=== PATIENT | female | born 1965 | race African-American/Black ===

== ENCOUNTER 2017-07-27 10:34 | Emergency (ER) | payer OTHER ==
[2017-07-27 10:42] VITALS: TEMP 98.8; BMI 28.0
--- NOTE | 2017-07-27 10:59 | PDOC ---
History of Present Illness - General History Source: Patient, Care Provider Exam Limitations: No Limitations - History of Present Illness Timing/Duration: 4-6 hours Severity: moderate Modifying Factors: improves with: movement (Increases pain), other (Deep inhalation; increases pain. ) <Jasiel Hill - Last Filed: 07/27/17 14:13> - General History Source: Patient, Care Provider (Patient walked in complaining of right sided chest pain, same time received call from her PCP about how this lady had a long flight of 14 hours from [facility] to [facility] aprox a week ago. Concern expressed about potential PE ) Exam Limitations: No Limitations - History of Present Illness Timing/Duration: 24 hours Severity: moderate Modifying Factors: improves with: movement Associated Symptoms: reports: chest pain. denies: fever/chills <Sara Dinh - Last Filed: 07/28/17 19:36> - General Chief Complaint: Chest Pain Stated Complaint: pleuritic chest pain,sent by PMD Time Seen by Provider: 07/27/17 10:54 Past History <Jasiel Hill - Last Filed: 07/27/17 14:13> - Travel Traveled outside of the country in the last 30 days: Yes Close contact w/someone who was outside of country & ill: No - Past Medical History COPD: No HTN: Yes Other medical history: rigth leg mild weakness due to iron injection years ago to rt buttock. - Suicide/Smoking/Psychosocial Hx Smoking History: Never smoked Hx Alcohol Use: No Drug/Substance Use Hx: No Substance Use Type: None <Sara Dinh - Last Filed: 07/28/17 19:36> - Past Medical History Allergies/Adverse Reactions: Allergies Allergy/AdvReac Type Severity Reaction Status Date / Time No Known Allergies Allergy Verified 07/27/17 10:35 Home Medications: Ambulatory Orders Unobtainable [Unobtainable] 07/27/17 Review of Systems - Review of Systems Cardiac (ROS): Yes: Chest Pain (Right sided chest pain. ) All Other Systems: Reviewed and Negative <Jasiel Hill - Last Filed: 07/27/17 14:13> - Review of Systems Able to Perform ROS?: Yes Is the patient limited [place] proficient: Yes Constitutional: No: Symptoms Reported, See HPI, Chills, Diaphoresis, Fever, Loss of Appetite, Malaise, Night Sweats, Weakness, Weight Stable, Unintentional Wgt. Loss, Unexplained wgt Loss, Other HEENTM: No: Symptoms Reported, See HPI, Eye Pain, Blurred Vision, Tearing, Recent change in vision, Double Vision, Cataracts, Ear Pain, Ocular Prothesis, Ear Discharge, Nose Pain, Nose Congestion, Tinnitus, Nose Bleeding, Hearing Loss , Throat Pain, Throat Swelling, Mouth Pain, Dental Problems, Difficulty Swallowing, Mouth Swelling, Other Cardiac (ROS): No: Chest Pain (Right sided chest pain increased by deep inspiration and certain turning of waist motions ) ABD/GI: No: Symptoms Reported, See HPI, Abdominal Distended, Abd. Pain w/ defecation, Blood Streaked Bowels, Constipated, Diarrhea, Difficulty Swallowing , Nausea, Poor Appetite, Poor Fluid Intake, Rectal Bleeding, Vomiting, Indigestion, Abdominal cramping, Tarry Stools, Other Musculoskeletal: Yes: See HPI Integumentary: No: Symptoms Reported, See HPI, Bruising, Change in Color, Change in Hair/Nails, Dryness, Erythema, Flushing, Lesions, Lumps, Pallor, Pruritus, Rash, Sweating, Other Neurological: No: Symptoms reported, See HPI, Headache, Numbness, Paresthesia, Pre-Existing Deficit, Seizure, Tingling, Tremors, Weakness, Unsteady Gait, Ataxia, Dizziness, Other Psychiatric: No: Anxiety, Depression, Frequent Crying, Stressors, Sleep Pattern Change, Emotional Problems, Mood Swings, Change in Appetite, Other Endocrine: No: Symptoms Reported, See HPI, Excessive Sweating, Flushing, Intolerance to Cold, Intolerance to Heat, Increased Hunger, Increased Thirst, Increased Urine, Unexplained Weight Gain, Unexplained Weight Loss, Change in Weight, Other All Other Systems: Reviewed and Negative <Sara Dinh - Last Filed: 07/28/17 19:36> *Physical Exam - Vital Signs Last Vital Signs Temp Pulse Resp BP Pulse Ox 98.8 F 88 18 159/94 95 07/27/17 10:35 07/27/17 10:35 07/27/17 10:35 07/27/17 10:35 07/27/17 10:35 - Physical Exam Respiratory/Chest: positive: Chest Tender (Pain to right sided chest, with deep palpation. ) <Jasiel Hill - Last Filed: 07/27/17 14:13> - Vital Signs Last Vital Signs Temp Pulse Resp BP Pulse Ox 98.8 F 88 18 159/94 95 07/27/17 10:35 07/27/17 10:35 07/27/17 10:35 07/27/17 10:35 07/27/17 10:35 - Physical Exam General Appearance: Yes: Nourished, Appropriately Dressed, Mild Distress, Moderate Distress, Other (overweight) HEENT: positive: SYL, Normal ENT Inspection Neck: positive: Normal Thyroid, Supple Respiratory/Chest: positive: Chest Tender Cardiovascular: positive: Regular Rate, S1, S2 Gastrointestinal/Abdominal: positive: Normal Bowel Sounds, Soft Lymphatic: negative: Adenopathy Musculoskeletal: positive: Normal Inspection Extremity: positive: Normal Capillary Refill. negative: Tender, Pedal Edema, Swelling, Calf Tenderness Integumentary: positive: Normal Color, Dry, Warm Neurologic: positive: Fully Oriented, Alert, Normal Mood/Affect <Sara Dinh - Last Filed: 07/28/17 19:36> ED Treatment Course - LABORATORY CBC & Chemistry Diagram: 07/27/17 11:17 07/27/17 11:17 - ADDITIONAL ORDERS Additional order review: Laboratory Results 07/27/17 07/27/17 11:17 11:17 PT with INR 13.1 H INR 1.17 Sodium 137 Potassium 4.0 Chloride 104 Carbon Dioxide 27 Anion Gap 6 L BUN 12 Creatinine 0.9 Creat Clearance w eGFR > 60 Random Glucose 102 Calcium 9.1 Total Bilirubin 0.2 AST 19 ALT 14 Alkaline Phosphatase 74 Total Protein 6.7 Albumin 3.9 07/27/17 11:17 RBC 5.19 MCV 82.8 MCHC 32.3 RDW 12.3 MPV 9.8 Neutrophils % 58.1 Lymphocytes % 28.7 Monocytes % 10.2 Eosinophils % 1.4 Basophils % 1.6 - Medications Given in the ED: ED Medications Discontinued Medications Generic Name Dose Route Start Last Admin Trade Name Freq PRN Reason Stop Dose Admin Ketorolac Tromethamine 30 mg 07/27/17 12:24 07/27/17 12:33 Toradol Injection - IM 07/27/17 12:25 30 mg ONCE ONE Administration <Jasiel Hill - Last Filed: 07/27/17 14:13> - LABORATORY CBC & Chemistry Diagram: 07/27/17 11:17 07/27/17 11:17 <Sara Dinh - Last Filed: 07/28/17 19:36> Medical Decision Making - Critical Care Time Total Critical Care Time (minutes): 30 Critical Care Statement: The care of this patient involved high complexity decision making to prevent further life threatening deterioration of the patient 's condition and/or to evaluate & treat vital organ system(s) failure or risk of failure. - Medical Decision Making Patient seen immediately from arrival due to a reported potential of a pulmonary embolism. Fully examined, blood tests ordered, iv fluids started , Pain amangement with iv Ketorolac with marked improvement. When blood tests were reported, an order for CT chest done to r/o PE. Report came as negative, Discussed with patient and PMD . Will follow up with PMD in few days , instructed to watch if any aditional signs , symptoms, including any skin rash in that area will occur 07/28/17 19:30 <Sara Dinh - Last Filed: 07/28/17 19:36> *DC/Admit/Observation/Transfer - Attestations Scribe Attestion: 07/27/17 14:17 Documentation prepared by Jasiel Hill, acting as medical office asst for Sara Dinh MD/DO. <Jasiel Hill - Last Filed: 07/27/17 14:13> - Discharge Dispostion Admit: No <Sara Dinh - Last Filed: 07/28/17 19:36> Diagnosis at time of Disposition: Acute chest wall pain - Discharge Dispostion Disposition: HOME Condition at time of disposition: Improved - Referrals Referrals: Gila Gallegos [Non Staff, Medical] - - Patient Instructions Printed Discharge Instructions: DI for Atypical Chest Pain Additional Instructions: Take daily 2 gelcaps Advil 3 times a day with food. Check with Dr Gallegos in 3-4 days
[2017-07-27 11:31] LABS: BASO % 1.6 % (0-2.0); EOS % 1.4 % (0-4.5); HEMOGLOBIN 13.9 GM/dl (10.7-15.3); LYMPH % 28.7 % (8-40); MCH 26.8 pg (25.7-33.7); MCHC 32.3 g/dl (32.0-36.0); MEAN CELL VOLUME 82.8 fl (80-96); MEAN PLT VOLUME 9.8 fl (7.5-11.1); MONO % 10.2 % (3.8-10.2); NEUT % 58.1 % (42.8-82.8); PLATELET COUNT 221 K/MM3 (134-434); RBC 5.19 M/mm3 (3.60-5.2); RDW 12.3 % (11.6-15.6); WHITE BLOOD COUNT 7.6 K/mm3 (4.0-10.8)
[2017-07-27 11:40] LABS: INR 1.17 (0.82-1.09); PROTHROMBIN TIME (PATIENT) 13.1 SEC (10.2-13.0)
[2017-07-27 11:43] LABS: ALBUMIN 3.9 g/dl (3.5-5.0); ALK PHOS 74 U/L (32-92); ANION GAP 6 (8-16); BILIRUBIN,TOTAL 0.2 mg/dl (0.2-1.0); BLOOD UREA NITROGEN 12 mg/dl (7-18); CALCIUM 9.1 mg/dl (8.4-10.2); CHLORIDE 104 mmol/L (98-107); CO2 27 mmol/L (22-28); CREATININE 0.9 mg/dl (0.6-1.3); GLUCOSE,RANDOM 102 mg/dl (74-106); SGOT/AST 19 U/L (10-42); SGPT/ALT 14 U/L (10-40); SODIUM 137 mmol/L (136-145); TOT PROT 6.7 g/dl (6.4-8.3)
[2017-07-27] MEDS ORDERED: KETOROLAC TROMETHAMINE 30 MG/1 ML VIAL IM ONE (12:24)
[2017-07-27] MEDS ORDERED: KETOROLAC TROMETHAMINE 30 MG/1 ML VIAL ONE (12:29)
[2017-07-27 14:22] VITALS: BP 140/84; PULSE 82
--- NOTE | 2017-07-29 17:42 | EKG ---
Test Reason : Blood Pressure : / mmHG Vent. Rate : 078 BPM Atrial Rate : 078 BPM P-R Int : 160 ms QRS Dur : 068 ms QT Int : 364 ms P-R-T Axes : 050 051 052 degrees QTc Int : 414 ms NORMAL SINUS RHYTHM POSSIBLE LEFT ATRIAL ENLARGEMENT prwp NO PREVIOUS ECGS AVAILABLE Confirmed by MD CODIE, PAUL ([id number]) on 07/29/2017 5:42:20 PM Referred By: THAD COMBS Confirmed By:PAUL MACKAY MD
== END 2017-07-27 14:15 | disposition home or self-care (01) ==
LOC: FER 10:34
PROC: 3E0233Z Introduction of Anti-inflammatory into Muscle, Percutaneous Approach (ICD-10-PCS; principal; 2017-07-27)
DX: R07.89 Other chest pain (principal); I10 Essential (primary) hypertension
CPT/HCPCS: 36415; 71046-TC; 71260-TC; 80053; 85025; 85610; 93005; 99283-25